=== PATIENT | male | born 1960 | race African-American/Black ===

== ENCOUNTER 2023-07-22 12:50 | Inpatient (IN) | payer OTHER ==
[2023-07-22 13:32] VITALS: BMI 22.4
[2023-07-22] MEDS ORDERED: guaiFENesin 600 MG TABLET.ER (FP) PO PRN (20:47)
[2023-07-22] MEDS ORDERED: BENZONATATE 200 MG CAPSULE PO PRN (20:47)
[2023-07-22] MEDS ORDERED: NALOXONE HCL 0.4 MG/ML VIAL IM PRN (20:47)
[2023-07-22] MEDS ORDERED: MAG HYDROX/AL HYDROX/SIMETH 30 ML UNIT-DOSE CUP PO PRN (20:47)
[2023-07-22] MEDS ORDERED: POLYETHYLENE GLYCOL (HEALTHYLAX) 3350 17 GM PACKET PO PRN (20:47)
[2023-07-22] MEDS ORDERED: NALOXONE HCL (KLOXXADO) 8 MG SPRAY NS PRN (20:47)
[2023-07-22] MEDS ORDERED: IBUPROFEN 400 MG TABLET (FP) PO PRN (20:47)
[2023-07-22] MEDS ORDERED: MAGNESIUM HYDROX 2400MG/30ML ORAL SUSPENSION 30 ML CUP PO PRN (20:47)
[2023-07-22] MEDS ORDERED: ACETAMINOPHEN 325 MG TABLET (FP) PO PRN (20:47)
[2023-07-22] MEDS ORDERED: LOPERAMIDE HCL 2 MG CAPSULE PO PRN (20:47)
[2023-07-22] MEDS ORDERED: BENZOCAINE/MENTHOL (CHLORASEPTIC ) LOZENGE MM PRN (20:47)
[2023-07-22] MEDS ORDERED: NICOTINE POLACRILEX 2 MG GUM BC PRN (20:51)
[2023-07-22] MEDS: THIAMINE HCL 100 MG TABLET (FP) PO SCH (21:38)
[2023-07-22] MEDS: MELATONIN 5 MG TABLETS PO SCH (21:38)
[2023-07-23] MEDS: IBUPROFEN 600 MG TABLET (FP) PO PRN (06:11)
[2023-07-23] MEDS: NICOTINE 21 MG/24 HOURS TOPICAL PATCH TD SCH (09:41)
[2023-07-23] MEDS: PRENATAL VITAMINS W/ FOLIC ACID TABLET (FP) PO SCH (09:41)
[2023-07-23 11:37] LABS: HEMATOCRIT 38.6 % (35.4-49); HEMOGLOBIN 12.5 GM/dL (11.7-16.9); MCH 29.2 pg (25.7-33.7); MCHC 32.4 g/dl (32.0-35.9); MEAN CELL VOLUME 90.1 fl (80-96); MEAN PLT VOLUME 9.4 fl (7.5-11.1); PLATELET COUNT 250 10^3/uL (134-434); RBC 4.28 M/mm3 (4.00-5.60)
[2023-07-23 11:39] LABS: EPI CELLS 8 /uL (0-25.1); HYALINE CASTS 11 /uL (0-3.1); PH,URINE 5.5 (5.0-8.0); URINE APPEARANCE CLEAR; URINE BACTERIA 404 /uL (0-1359); URINE BILIRUBIN NEGATIVE (NEGATIVE); URINE COLOR DK YELLOW; URINE GLUCOSE (UA) NEGATIVE (NEGATIVE); URINE KETONE TRACE (NEGATIVE); URINE LEUK ESTERASE 2+ (NEGATIVE); URINE NITRITE NEGATIVE (NEGATIVE); URINE PROTEIN TRACE (NEGATIVE); URINE RBC 5 /uL (0-23.9); URINE WBC 155 /uL (0-25.8)
[2023-07-23 11:45] LABS: CHLORIDE 108 mmol/L (98-107); POTASSIUM 4.1 mmol/L (3.5-5.1); SODIUM 143 mmol/L (136-145)
[2023-07-23 11:53] LABS: CALCIUM 9.1 mg/dL (8.5-10.1)
[2023-07-23 11:54] LABS: ALBUMIN 2.9 g/dl (3.4-5.0); ANION GAP 8 mmol/L (4-13); BLOOD UREA NITROGEN 18.6 mg/dL (7-18); CO2 28 mmol/L (21-32); GLUCOSE,RANDOM 93 mg/dL (74-106)
[2023-07-23 11:57] LABS: CREATININE 1.1 mg/dL (0.55-1.3); SGOT/AST 24 U/L (15-37); SGPT/ALT 33 U/L (13-61)
[2023-07-23 11:58] LABS: BILIRUBIN,TOTAL 0.3 mg/dL (0.2-1); TOT PROT 6.4 g/dl (6.4-8.2)
[2023-07-23 11:59] LABS: ALK PHOS 78 U/L (45-117)
[2023-07-23] MEDS ORDERED: TUBERCULIN PPD 5 TU/0.1ML VIAL ID ONE (16:41)
[2023-07-23] MEDS: THIAMINE HCL 100 MG TABLET (FP) PO SCH (21:10)
[2023-07-23] MEDS: MELATONIN 5 MG TABLETS PO SCH (21:10)
[2023-07-24] MEDS: NICOTINE 21 MG/24 HOURS TOPICAL PATCH TD SCH (09:51)
[2023-07-24] MEDS: IBUPROFEN 600 MG TABLET (FP) PO PRN (09:53)
[2023-07-24] MEDS: PRENATAL VITAMINS W/ FOLIC ACID TABLET (FP) PO SCH (09:53)
[2023-07-24 15:46] LABS: HIV INTERPRETATION PRESUMPTIVE POSITIVE (NEGATIVE)
[2023-07-24] MEDS: THIAMINE HCL 100 MG TABLET (FP) PO SCH (21:14)
[2023-07-24] MEDS ORDERED: SUVOREXANT 10 MG TABLET PO PRN (22:00)
[2023-07-25] MEDS: NICOTINE 21 MG/24 HOURS TOPICAL PATCH TD SCH (09:37)
[2023-07-25] MEDS: PRENATAL VITAMINS W/ FOLIC ACID TABLET (FP) PO SCH (09:37)
[2023-07-25] MEDS: THIAMINE HCL 100 MG TABLET (FP) PO SCH (21:10)
[2023-07-25] MEDS: IBUPROFEN 600 MG TABLET (FP) PO PRN (22:31)
[2023-07-26] MEDS: PRENATAL VITAMINS W/ FOLIC ACID TABLET (FP) PO SCH (09:38)
[2023-07-26] MEDS: NICOTINE 21 MG/24 HOURS TOPICAL PATCH TD SCH (09:38)
[2023-07-26] MEDS: COLLOIDAL OATMEAL 1 BAR EACH TP PRN (10:19)
[2023-07-26] MEDS: SULFAMETHOXAZOLE/TRIMETHOPRIM 800MG/160MG D.S. TABLET PO SCH ×2 (14:53→21:04)
[2023-07-26 16:43] LABS: URINE APPEARANCE CLEAR; URINE BILIRUBIN NEGATIVE (NEGATIVE); URINE COLOR YELLOW; URINE GLUCOSE (UA) NEGATIVE (NEGATIVE); URINE KETONE NEGATIVE (NEGATIVE); URINE LEUK ESTERASE NEGATIVE (NEGATIVE); URINE NITRITE NEGATIVE (NEGATIVE); URINE PROTEIN NEGATIVE (NEGATIVE); URINE UROBILINOGEN 0.2 mg/dL (0.2-1.0)
[2023-07-26] MEDS: SUVOREXANT 5 MG TABLET PO PRN (21:04)
[2023-07-26] MEDS: THIAMINE HCL 100 MG TABLET (FP) PO SCH (21:04)
[2023-07-27] MEDS: PRENATAL VITAMINS W/ FOLIC ACID TABLET (FP) PO SCH (09:32)
[2023-07-27] MEDS: NICOTINE 21 MG/24 HOURS TOPICAL PATCH TD SCH (09:32)
[2023-07-27] MEDS: SULFAMETHOXAZOLE/TRIMETHOPRIM 800MG/160MG D.S. TABLET PO SCH ×2 (09:33→21:17)
[2023-07-27] MEDS: THIAMINE HCL 100 MG TABLET (FP) PO SCH (21:17)
[2023-07-27] MEDS: SUVOREXANT 5 MG TABLET PO PRN (21:17)
[2023-07-28] MEDS: NICOTINE 21 MG/24 HOURS TOPICAL PATCH TD SCH (09:35)
[2023-07-28] MEDS: PRENATAL VITAMINS W/ FOLIC ACID TABLET (FP) PO SCH (09:35)
[2023-07-28] MEDS: SULFAMETHOXAZOLE/TRIMETHOPRIM 800MG/160MG D.S. TABLET PO SCH ×2 (09:35→21:15)
[2023-07-28] MEDS: THIAMINE HCL 100 MG TABLET (FP) PO SCH (21:15)
[2023-07-28] MEDS: SUVOREXANT 5 MG TABLET PO PRN (21:15)
[2023-07-29] MEDS: PRENATAL VITAMINS W/ FOLIC ACID TABLET (FP) PO SCH (09:59)
[2023-07-29] MEDS: NICOTINE 21 MG/24 HOURS TOPICAL PATCH TD SCH (09:59)
[2023-07-29] MEDS: SULFAMETHOXAZOLE/TRIMETHOPRIM 800MG/160MG D.S. TABLET PO SCH ×2 (10:00→21:12)
[2023-07-29] MEDS: SUVOREXANT 5 MG TABLET PO PRN (21:11)
[2023-07-29] MEDS: THIAMINE HCL 100 MG TABLET (FP) PO SCH (21:12)
[2023-07-29] MEDS ORDERED: SUVOREXANT 10 MG TABLET PO PRN (22:00)
[2023-07-30] MEDS: PRENATAL VITAMINS W/ FOLIC ACID TABLET (FP) PO SCH (09:49)
[2023-07-30] MEDS: SULFAMETHOXAZOLE/TRIMETHOPRIM 800MG/160MG D.S. TABLET PO SCH ×2 (09:49→21:04)
[2023-07-30] MEDS: NICOTINE 21 MG/24 HOURS TOPICAL PATCH TD SCH (09:49)
[2023-07-30] MEDS: GABAPENTIN 100 MG CAPSULE PO SCH ×2 (15:07→21:04)
[2023-07-30] MEDS: THIAMINE HCL 100 MG TABLET (FP) PO SCH (21:04)
[2023-07-30] MEDS ORDERED: SUVOREXANT 5 MG TABLET PO PRN (21:08)
[2023-07-30] MEDS: SUVOREXANT 5 MG TABLET PO PRN (21:11)
[2023-07-30] MEDS: BACITRACIN 0.9 GM PACKET TP SCH (21:12)
[2023-07-31] MEDS: GABAPENTIN 100 MG CAPSULE PO SCH ×3 (06:54→21:03)
[2023-07-31] MEDS: BACITRACIN 0.9 GM PACKET TP SCH ×2 (09:48→21:03)
[2023-07-31] MEDS: SULFAMETHOXAZOLE/TRIMETHOPRIM 800MG/160MG D.S. TABLET PO SCH ×2 (09:48→21:03)
[2023-07-31] MEDS: NICOTINE 21 MG/24 HOURS TOPICAL PATCH TD SCH (09:49)
[2023-07-31] MEDS: PRENATAL VITAMINS W/ FOLIC ACID TABLET (FP) PO SCH (09:49)
[2023-07-31] MEDS ORDERED: BACITRACIN 0.9 GM PACKET TP ONE (13:12)
[2023-07-31] MEDS: THIAMINE HCL 100 MG TABLET (FP) PO SCH (21:03)
[2023-07-31] MEDS: SUVOREXANT 5 MG TABLET PO PRN (21:04)
[2023-08-01] MEDS: GABAPENTIN 100 MG CAPSULE PO SCH ×3 (06:12→21:03)
[2023-08-01] MEDS: SULFAMETHOXAZOLE/TRIMETHOPRIM 800MG/160MG D.S. TABLET PO SCH ×2 (09:48→21:03)
[2023-08-01] MEDS: PRENATAL VITAMINS W/ FOLIC ACID TABLET (FP) PO SCH (09:48)
[2023-08-01] MEDS: BACITRACIN 0.9 GM PACKET TP SCH ×2 (09:49→21:03)
[2023-08-01] MEDS: NICOTINE 21 MG/24 HOURS TOPICAL PATCH TD SCH (09:50)
[2023-08-01] MEDS: SUVOREXANT 5 MG TABLET PO PRN (21:02)
[2023-08-01] MEDS: THIAMINE HCL 100 MG TABLET (FP) PO SCH (21:03)
[2023-08-02] MEDS: GABAPENTIN 100 MG CAPSULE PO SCH ×3 (06:28→21:18)
[2023-08-02] MEDS: NICOTINE 21 MG/24 HOURS TOPICAL PATCH TD SCH (09:49)
[2023-08-02] MEDS: SULFAMETHOXAZOLE/TRIMETHOPRIM 800MG/160MG D.S. TABLET PO SCH ×2 (09:49→21:18)
[2023-08-02] MEDS: PRENATAL VITAMINS W/ FOLIC ACID TABLET (FP) PO SCH (09:49)
[2023-08-02] MEDS: BACITRACIN 0.9 GM PACKET TP SCH ×2 (09:49→21:18)
[2023-08-02] MEDS: THIAMINE HCL 100 MG TABLET (FP) PO SCH (21:18)
[2023-08-02] MEDS: SUVOREXANT 5 MG TABLET PO PRN (21:20)
[2023-08-03] MEDS: GABAPENTIN 100 MG CAPSULE PO SCH ×3 (06:11→21:07)
[2023-08-03] MEDS: BACITRACIN 0.9 GM PACKET TP SCH ×2 (09:40→21:06)
[2023-08-03] MEDS: SULFAMETHOXAZOLE/TRIMETHOPRIM 800MG/160MG D.S. TABLET PO SCH ×2 (09:40→21:06)
[2023-08-03] MEDS: NICOTINE 21 MG/24 HOURS TOPICAL PATCH TD SCH (09:40)
[2023-08-03] MEDS: PRENATAL VITAMINS W/ FOLIC ACID TABLET (FP) PO SCH (09:40)
[2023-08-03] MEDS: THIAMINE HCL 100 MG TABLET (FP) PO SCH (21:06)
[2023-08-03] MEDS: SUVOREXANT 5 MG TABLET PO PRN (21:07)
[2023-08-04] MEDS: GABAPENTIN 100 MG CAPSULE PO SCH ×3 (06:53→21:05)
[2023-08-04] MEDS: SULFAMETHOXAZOLE/TRIMETHOPRIM 800MG/160MG D.S. TABLET PO SCH ×2 (09:45→21:06)
[2023-08-04] MEDS: BACITRACIN 0.9 GM PACKET TP SCH ×2 (09:45→21:05)
[2023-08-04] MEDS: PRENATAL VITAMINS W/ FOLIC ACID TABLET (FP) PO SCH (09:45)
[2023-08-04] MEDS: NICOTINE 21 MG/24 HOURS TOPICAL PATCH TD SCH (09:46)
[2023-08-04] MEDS: THIAMINE HCL 100 MG TABLET (FP) PO SCH (21:06)
[2023-08-04] MEDS: SUVOREXANT 5 MG TABLET PO PRN (21:06)
[2023-08-05] MEDS: GABAPENTIN 100 MG CAPSULE PO SCH ×3 (06:16→21:05)
[2023-08-05 07:08] VITALS: RESP 18
[2023-08-05] MEDS: PRENATAL VITAMINS W/ FOLIC ACID TABLET (FP) PO SCH (09:57)
[2023-08-05] MEDS: BACITRACIN 0.9 GM PACKET TP SCH ×2 (09:57→21:05)
[2023-08-05] MEDS: NICOTINE 21 MG/24 HOURS TOPICAL PATCH TD SCH (09:57)
[2023-08-05] MEDS: SUVOREXANT 5 MG TABLET PO PRN (21:05)
[2023-08-05] MEDS: THIAMINE HCL 100 MG TABLET (FP) PO SCH (21:05)
[2023-08-06] MEDS: GABAPENTIN 100 MG CAPSULE PO SCH ×3 (06:02→21:04)
[2023-08-06] MEDS: BACITRACIN 0.9 GM PACKET TP SCH ×2 (09:42→21:04)
[2023-08-06] MEDS: PRENATAL VITAMINS W/ FOLIC ACID TABLET (FP) PO SCH (09:42)
[2023-08-06] MEDS: NICOTINE 21 MG/24 HOURS TOPICAL PATCH TD SCH (09:42)
[2023-08-06] MEDS: SUVOREXANT 5 MG TABLET PO PRN (21:04)
[2023-08-06] MEDS: THIAMINE HCL 100 MG TABLET (FP) PO SCH (21:04)
[2023-08-07] MEDS: GABAPENTIN 100 MG CAPSULE PO SCH (06:00)
[2023-08-07] MEDS: COLLOIDAL OATMEAL 1 BAR EACH TP PRN (06:18)
[2023-08-07 06:37] VITALS: BP 122/72; PULSE 79; TEMP 97.5
[2023-08-07] MEDS: NICOTINE 21 MG/24 HOURS TOPICAL PATCH TD SCH (10:15)
[2023-08-07] MEDS: PRENATAL VITAMINS W/ FOLIC ACID TABLET (FP) PO SCH (10:15)
[2023-08-07] MEDS: BACITRACIN 0.9 GM PACKET TP SCH (10:15)
== END 2023-08-07 10:51 | disposition home or self-care (01) | DRG 772 ==
LOC: SUATTDRO 12:50 → YASAS 12:50 → Y5N 19:08
PROVIDERS: ADMIT Allergy & Immunology; ATTEND Psychiatry & Neurology Pain Medicine
PROC: HZ42ZZZ Group Counseling for Substance Abuse Treatment, Cognitive-Behavioral (ICD-10-PCS; principal; 2023-07-22)
DX: F10.20 Alcohol dependence, uncomplicated (principal); F11.10 Opioid abuse, uncomplicated; F14.120 Cocaine abuse with intoxication, uncomplicated; F12.20 Cannabis dependence, uncomplicated; F17.210 Nicotine dependence, cigarettes, uncomplicated; F19.282 Other psychoactive substance dependence with psychoactive substance-induced sleep disorder; F19.24 Other psychoactive substance dependence with psychoactive substance-induced mood disorder; Z21 Asymptomatic human immunodeficiency virus [HIV] infection status; R73.03 Prediabetes
CPT/HCPCS: 36415; 80053; 80307; 81003; 85027; 86359; 86360; 86780; 87086; 87389; 87491; 87591; 87635; 87661; 87811; 93005; 93010